=== PATIENT | male | born 2000 ===

== ENCOUNTER 2023-06-19 19:06 | Emergency (ER) | payer MEDICAID, SELFPAY ==
[2023-06-19 19:03] VITALS: BP 147/111; PULSE 53; RESP 18; O2SAT 100
--- NOTE | 2023-06-19 19:15 | RT.EKG_ITS ---
APPROVED REPORT Exam: Resting ECG Reason for Exam: Cocaine Patient Location: E HR:48 bpm ECG Measurements Heart Rate 48 AXIS CA 142 P 54 QRSd 97 QRS 76 QT 489 T 68 QTc 438 Conclusion Sinus bradycardia...rate< 60 Nonspecific T abnrm, anterolateral leads...T <-0.10mV, I aVL V2-V6 ST elev, probable normal early repol pattern...ST elevation, age<[address] segment or T wave abnormalities to suggest occlusive ID
[2023-06-19] MEDS: Normal Saline 1,000 ML 1000 ML IV (19:28)
[2023-06-19] MEDS: Ondansetron 4 MG/2 ML VIAL IVP (19:28)
[2023-06-19 19:31] LABS: Abs Immature Grans 0.09 10^3/uL (0.0-0.06); Absolute Basophil Count 0.06 10^3/uL (0.0-0.2); Absolute Eosinophil Count 0.04 10^3/uL (0.0-0.7); Absolute Lymphocyte Count 2.15 10^3/uL (1.2-3.4); Absolute Neutrophil Count 15.57 10^3/uL (1.2-6.7); Basophils % 0.3; Eosinophils % 0.2; HCT 45.8 % (40.0-50.0); HGB 16.5 g/dL (13.5-17.5); Immature Grans % 0.5; Lymphocytes % 11.3; MCH 31.3 pg (27.0-33.0); MCV 87 fL (80-95); MPV 8.9 fL (8.0-11.0); Monocytes % 5.8; Neutrophils % 81.9; Platelet Count 245 10^3/uL (130-400); RBC 5.27 10^6/uL (4.36-5.78); RDW 11.9 % (11.8-14.1); RDW-SD 38.1 fL; WBC 19.01 10^3/uL (4.4-10.8)
[2023-06-19 19:41] LABS: Magnesium 1.9 mg/dL (1.8-2.4)
--- NOTE | 2023-06-19 19:45 | W.ED.GENAD ---
HPI General Mode of arrival: ambulatory. Date/Time Provider Initiated Documentation: 06/19/23 19:22. Limitations to Documentation: no limitations. Information obtained by: patient. HPI Narrative: 23yo M with hx of ETOH abuse presenting for nausea, vomiting, and abdominal pain. Wanted to go to rehab tomorrow, reports drinking '40 beers' yesterday as he knew he would not be able to drink again afterwards. Also cocaine yesterday. Had not identified a specific program, just a general plan to go. Today nausea and vomiting, unable to keep anything down. Some streaks of blood in the vomit. Nonbilious, not dark. After vomiting for several hours began to have diffuse abdominal pain. No flank pain, dysuria, hematuria, testicular pain. He denies any history of alcohol withdrawal or withdrawal seizures in the past. No recent head injuries. Otherwise in his usual state of health with no fevers, chills, rash, headache, numbness, weakness, diarrhea, constipation, bloody stool, melena, or other concerns. Related Data Home Medications Medication Instructions Recorded Confirmed sertraline 50 mg tablet (Zoloft) 50 mg PO DAILY 06/19/23 06/19/23 Allergies Allergy/AdvReac Type Severity Reaction Status Date / Time Penicillins Allergy Severe Anaphylaxis Unverified 06/19/23 19:11 General Stated Complaint: Abd Prob TEQUILA: 3 Review of Systems Narrative: see HPI Exam Narrative Exam Narrative: General: Alert, well appearing, well nourished, in no acute distress. Head: Normocephalic, atraumatic Neck: Trachea midline, ?Neck supple. ENT: ?MMM.? No oropharygeal lesions or exudate. Cardiac: ?RRR, no murmurs appreciated Resp: No respiratory distress. CTAB. Abd: ?Soft, non-distended, diffusely tender to palpation. : ?No suprapubic tenderness. No CVA tenderness. Extremities: ?No deformities.? No peripheral edema. Neurologic: GCS 15. ? Moves all extremities freely against gravity Course Vital Signs Vital signs: Vital Signs Pulse 53 L 06/19/23 19:03 Respiratory Rate 18 06/19/23 19:03 Blood Pressure 147/111 H 06/19/23 19:03 Pulse Oximetry 100 06/19/23 19:03 Pulse 53 L 06/19/23 19:03 Respiratory Rate 18 06/19/23 19:03 Respiratory Effort Normal, Non-Labored 06/19/23 19:08 Blood Pressure 147/111 H 06/19/23 19:03 Blood Pressure Position Sitting 06/19/23 19:03 Pulse Oximetry 100 06/19/23 19:03 Oxygen Delivery Method Room Air 06/19/23 19:03 Oxygen Flow Rate 0 06/19/23 19:03 Pain Level 9 06/19/23 19:03 Lab/Test Results Lab/Test Results: Laboratory Tests Range/Units 06/19/23 19:16 WBC (4.4-10.8) 10^3/uL 19.01 H RBC (4.36-5.78) 10^6/uL 5.27 Hgb (13.5-17.5) g/dL 16.5 Hct (40.0-50.0) % 45.8 MCV (80-95) fL 87 MCH (27.0-33.0) pg 31.3 MCHC (32.0-36.0) % 36.0 RDW (11.8-14.1) % 11.9 Plt Count (130-400) 10^3/uL 245 MPV (8.0-11.0) fL 8.9 Immature Gran % 0.5 Neutrophils % 81.9 Lymphocytes % 11.3 Monocytes % 5.8 Eosinophils % 0.2 Basophils % 0.3 Nucleated RBC % (0.0-0.3) % 0.0 Absolute Neutrophils (1.2-6.7) 10^3/uL 15.57 H Absolute Lymphocytes (1.2-3.4) 10^3/uL 2.15 Absolute Monocytes (0.1-0.8) 10^3/uL 1.10 H Absolute Eosinophils (0.0-0.7) 10^3/uL 0.04 Absolute Basophils (0.0-0.2) 10^3/uL 0.06 Magnesium (1.8-2.4) mg/dL 1.9 Medical Decision Making 23yo M with hx of ETOH abuse presenting for nausea, vomiting, and abdominal pain x 1 day. Planned to go to rehab tomorrow (had not identified a program yet) reports drinking '40 beers' yesterday as he knew he would not be able to drink again afterwards, as well as cocaine yesterday. Today N/V, unable to keep anything down, diffuse abdominal pain that started several hours after he began vomiting. No chest pain. Vital signs reassuring; slightly hypertensive, no tachycardia. Non-peritoneal abdominal exam. Given IV zofran for and IVFB . Initial CIWA 5. EKG sinus rhythm, no ST segment or T wave abnormalities to suggest occlusive ME. Labs reviewed as below, CBC with leukocytosis to 19, CMP reassuring with no electrolyte abnormalities, serum ethanol 5.9. Vomiting improved after zofran. CT independently reviewed, no obstruction or free fluid on my view, agree with radiology read below. Patient with no flank pain or urinary symptoms, urinary obstruction unlikely. On reassessment he is again vomiting; given IV reglan. Repeat CIWA 12; will treat with ativan and order bannana bag. Patient subsequently appears to be sleeping comfortably. Signed out to oncoming physician pending UA; plan to reassess, continue CIWA q2 hours. If stable and tolerating PO likely dc home, otherwise will need admit for ETOH withdrawal. Imaging Data Radiologic Study: Imaging: CT Scan Radiologist's impression: IMPRESSION: 1. Mild nonspecific colitis cecum and right colon. 2. Mild left hydronephrosis. Left ureter nondilated, and UPJ obstruction is a consideration. Lab Data Lab results reviewed: Yes I reviewed the patient's lab results. Labs: Laboratory Tests Range/Units 06/19/23 19:16 WBC (4.4-10.8) 10^3/uL 19.01 H RBC (4.36-5.78) 10^6/uL 5.27 Hgb (13.5-17.5) g/dL 16.5 Hct (40.0-50.0) % 45.8 MCV (80-95) fL 87 MCH (27.0-33.0) pg 31.3 MCHC (32.0-36.0) % 36.0 RDW (11.8-14.1) % 11.9 Plt Count (130-400) 10^3/uL 245 MPV (8.0-11.0) fL 8.9 Immature Gran % 0.5 Neutrophils % 81.9 Lymphocytes % 11.3 Monocytes % 5.8 Eosinophils % 0.2 Basophils % 0.3 Nucleated RBC % (0.0-0.3) % 0.0 Absolute Neutrophils (1.2-6.7) 10^3/uL 15.57 H Absolute Lymphocytes (1.2-3.4) 10^3/uL 2.15 Absolute Monocytes (0.1-0.8) 10^3/uL 1.10 H Absolute Eosinophils (0.0-0.7) 10^3/uL 0.04 Absolute Basophils (0.0-0.2) 10^3/uL 0.06 Sodium (136-145) mmol/L 142 Potassium (3.5-5.1) mmol/L 4.0 Chloride (98-107) mmol/L 101 Carbon Dioxide (21.0-32.0) mmol/L 31.2 Anion Gap (3-11) mmol/L 9.8 BUN (7-18) mg/dL 9 Creatinine (0.70-1.30) mg/dL 1.2 Est GFR (CKD-EPI 2020) (mL/min/1.73m2) 87.15 Glucose (74-106) mg/dL 134 H Calcium (8.5-10.1) mg/dL 9.4 Magnesium (1.8-2.4) mg/dL 1.9 Total Bilirubin (0.2-1.0) mg/dL 1.1 H AST (15-37) U/L 21 ALT (16-63) U/L 24 Alkaline Phosphatase (46-116) U/L 81 Total Protein (6.4-8.2) g/dL 7.9 Albumin (3.4-5.0) g/dL 5.0 Ethyl Alcohol (<10) mg/dL 5.9 Quality:[facility] Health Related Social Needs: No Data to Display [facility] Social History Smoking risk assessment performed?: No Alcohol Intake: current Alcohol Intake frequency: 3 or more drinks per day Alcohol type: beer Drug use: Daily Substance use type: marijuana and crack/cocaine Sign Out Sign Out Data: Sign Out Comment: 23yo M, N/V, ETOH withdrawal. Labs/imaging reassuring. CIWA 5, 12. Pending UA, CIWA q2h. If scoring low and able to tolerate PO would dc home, otherwise admit for withdrawal. Last updated by Marlene Mcguire MD at 06/19/23 22:59 PAWSS Have you Been Recently Intoxicated or Drunk Within the Last 30 days?: Yes Have you Ever Experienced Previous Episodes of Alcohol Withdrawal?: Yes Have you ever Experienced Withdrawal Seizures?: No Have you ever Experienced Delirium Tremens(DT)s?: No Have you ever undergone Alcohol Rehabilitation Treatment (i.e, inpt ot outpatient treatment programs)?: No Have you ever Experienced Blackouts?: Yes Have you ever Combined Alcohol with any other Substance of Abuse during the last 90 days?: Yes Evidence of Increased Autonomic Activity (i.e. HR>120, tremor, sweating, agitation, nausea)?: Yes Result: 6 Discharge Plan Discharge Details Chief Complaint: Abd Prob Primary Care Provider: Unknown,Unknown ED Provider: Marlene Mcguire Home Meds and New Rx's Prescriptions: No Action sertraline [Zoloft] 50 mg tablet 50 mg PO DAILY
[2023-06-19 19:47] LABS: ALT 24 U/L (16-63); AST 21 U/L (15-37); Alkaline Phosphatase 81 U/L (46-116); Anion Gap 9.8 mmol/L (3-11); BUN 9 mg/dL (7-18); Bilirubin, Total 1.1 mg/dL (0.2-1.0); CO2 31.2 mmol/L (21.0-32.0); CREATININE 1.2 mg/dL (0.70-1.30); Calcium 9.4 mg/dL (8.5-10.1); Chloride 101 mmol/L (98-107); ETHANOL BLOOD 5.9 mg/dL (<10); Estimated GFR 87.15 (mL/min/1.73m2); Glucose 134 mg/dL (74-106); Sodium 142 mmol/L (136-145); Total Protein 7.9 g/dL (6.4-8.2)
[2023-06-19 20:12] VITALS: RESP 16
--- NOTE | 2023-06-19 21:15 | DI.CT_ITS ---
Exam(s) CT ABDOMEN PELVIS W EXAM: CT ABDOMEN PELVIS W CLINICAL HISTORY: right sided abd pain, vomiting. TECHNIQUE: Imaging Protocol: Axial computed tomography images with coronal and sagittal reformatted images were created and reviewed CONTRAST MATERIAL: Intravenous: Omnipaque 350 Contrast volume:100 ml Oral: no COMPARISON: No exams were available for comparison FINDINGS: ABDOMEN and PELVIS: Exam limited by motion. Lung Bases: No acute findings. Liver: Normal density. No measurable mass. Gallbladder and biliary tract: No radiodense calculus or dilation. Pancreas: Normal density. No abnormal calcifications or inflammatory process. No evidence of mass. Spleen: Normal. Kidneys: Normal size. No radiodense stones. Dilatation of the left renal pelvis and calices. No vis ible obstructing stone. The nephrograms are symmetric. Findings may represent normal variant. No s uspicious masses seen. Adrenal glands: No masses seen. Vasculature: Abdominal aorta non-dilated. Soft tissues: Unremarkable. Bladder: No gross wall thickening. No calculi.No focal mass. Bowel: No obstruction. Limited evaluation due to motion and lack contrast. Very little stool. Que stion of mild wall thickening of the ascending colon versus nondistention.. Appendix normal. Peritoneal cavity: No ascites. No focal collection or mesenteric inflammatory response. Bones: Unremarkable for age. Reproductive organs: Within normal limits. Lymph nodes: Unremarkable. IMPRESSION:: Questionable right-sided colitis. No evidence of appendicitis. Dilatation of the left renal pelvis could represent normal variant. No findings to suggest acute obs truction. RADIATION DOSE DELIVERED: 616.71mGy.cm Total DLP DATA REPOSITORY: All CT scans at this facility are submitted to the National Radiology Data Registry (NRDR) Dose Index Registry (DIR) with the [employer] (ACR). RADIATION OPTIMIZATION: All CT scans at this facility use at least one of these dose optimization te chniques: automated exposure control; mA and/or kV adjustment per patient size (includes targeted exa ms where dose is matched to clinical indication); or iterative reconstruction.
[2023-06-19] MEDS: Normal Saline Flush 10 ML SYR IVP (21:23)
[2023-06-19] MEDS: Normal Saline - Diluent 50 ML VIAL IJ (21:24)
[2023-06-19] MEDS: Omnipaque 350 MG/ML 100 ML BTL IJ (21:25)
[2023-06-19 21:29] VITALS: RESP 16
[2023-06-19] MEDS: Metoclopramide 10 MG/2 ML VIAL IVP (22:17)
[2023-06-19] MEDS: LORazepam 1 MG TAB PO/SL (22:31)
--- NOTE | 2023-06-19 22:37 | DI.VRAD_ITS ---
PROCEDURE INFORMATION: Exam: CT Abdomen And Pelvis With Contrast Exam date and time: 06/19/2023 9:33 PM Age: 23 years old Clinical indication: Abdominal pain; Localized; Right; Patient HX: R sided abd pain, vomiting TECHNIQUE: Imaging protocol: Computed tomography of the abdomen and pelvis with contrast. Contrast material: OMNIPAQUE 350; Contrast volume: 100 ml; Contrast route: INTRAVENOUS (IV); COMPARISON: No relevant prior studies available. FINDINGS: Liver: Diffuse decrease in hepatic parenchymal density, consistent with fatty infiltration. Gallbladder and bile ducts: Normal. No calcified stones. No ductal dilation. Pancreas: Normal. No ductal dilation. Spleen: Normal. No splenomegaly. Adrenal glands: Normal. No mass. Kidneys and ureters: Mild left hydronephrosis. Left ureter nondilated, and UPJ obstruction is a consideration. No right hydronephrosis. Stomach and bowel: Mild nonspecific colitis cecum and right colon. No evidence of intestinal perforation or obstruction. Appendix: No evidence of appendicitis. Intraperitoneal space: Unremarkable. No free air. No significant fluid collection. Vasculature: Unremarkable. No abdominal aortic aneurysm. Lymph nodes: Unremarkable. No enlarged lymph nodes. Urinary bladder: Unremarkable as visualized. Reproductive: Unremarkable as visualized. Bones/joints: Unremarkable. No acute fracture. Soft tissues: Unremarkable. IMPRESSION: 1. Mild nonspecific colitis cecum and right colon. 2. Mild left hydronephrosis. Left ureter nondilated, and UPJ obstruction is a consideration. Dictated and Authenticated by: Nadeem Dangelo MD. Ordering:ALEXEI Rosario MD
--- NOTE | 2023-06-20 01:56 | W.EDPROG ---
Date of service: 06/20/23 Time of Service: 01:56 Medical Decision Making Patient was signed out to me by my colleague Dr. Rocio Richards, please refer to HPI, physical exam, assessment and plan. Plan was for reassessment during the evening to evaluate for signs of withdrawal or improvement. On reassessment at 2 AM patient feels much better. He feels well, CIWA score is essentially absent/0. No significant shaking, tremor, hallucinations or other abnormality. Patient feels well and feels comfortable going home. I did ask the patient if you would like to connect with the health and wellness coach she is here, and at this time he would prefer to go home and connect with them outpatient. Will place in a referral for health and wellness coach as for the patient. Patient otherwise looks well, no signs of significant withdrawal, DTs, or other abnormality. Patient does have elevation of his white count on review of labs, however there is no evidence of bandemia. Electrolytes normal otherwise. Patient has no fever or signs of infection clinically. No cough or shortness of breath. Discussed red flags for which to return. I have extensively reviewed the treatment plan and discharge instructions with the patient. I have addressed all patient concerns at this time. The patient was made aware of what symptoms to monitor for that would warrant a return to the emergency department. Discussed the plan with the patient, they demonstrate verbal understanding and agreement with our assessment and plan at this time. The documentation in this chart was dictated using [employer] dictation software. Please excuse any dictation errors. Quality:[facility] Health Related Social Needs: No Data to Display Sign Out Sign Out Data: Sign Out Comment: 23yo M, N/V, ETOH withdrawal. Labs/imaging reassuring. CIWA 5, 12. Pending UA, CIWA q2h. If scoring low and able to tolerate PO would dc home, otherwise admit for withdrawal. Last updated by Marlene Mcguire MD at 06/19/23 22:59 Discharge Plan Disposition Patient Disposition: Home Discharge Details Chief Complaint: Abd Prob Clinical Impression: Alcohol withdrawal Primary Care Provider: Unknown,Unknown ED Provider: Charlie Costa Home Meds and New Rx's Prescriptions: No Action sertraline [Zoloft] 50 mg tablet 50 mg PO DAILY Discharge Instructions Instructions: Alcohol Withdrawal (ED) Additional Instructions: We have placed a referral with our recovery coaches. They will reach out to you for further outpatient discussion and management. Please take plenty of fluids, avoid alcohol use. If you notice any worsening of your symptoms, or any new symptoms such as vomiting, diarrhea, fever, chills, shortness of breath, chest pain, numbness, weakness, or fainting , please return immediately to the emergency department for reevaluation. Please follow up with your primary care provider as soon as possible for reassessment and reevaluation. As always, it was a pleasure participating in your medical care today.
== END 2023-06-20 01:57 | disposition home or self-care (01) ==
PROVIDERS: Student in an Organized Health Care Education/Training Program; Emergency Provider Student in an Organized Health Care Education/Training Program
DX: R10.9 Unspecified abdominal pain (principal); R11.2 Nausea with vomiting, unspecified; F10.139 Alcohol abuse with withdrawal, unspecified
CPT/HCPCS: 00123; 80053; 93005; 96361; 96374; 96375; 99285; 74177; 80320; 83735; 85025; 93010; 99284; J2405; J2765; J3490